=== PATIENT | female | born 1975 | race Caucasian/White ===

== ENCOUNTER → 2017-09-01 | Outpatient (REF) | payer OTHER ==
[2013-08-24 15:26] VITALS: BMI 37.4
[~2017-09-01] MED LIST: LACT10SO82 PO; LANI SUBQ; LISI-362 PO; PENT400T57 PO; PROP20TA56 PO; SPIR50TA33 PO; TRAM-420 PO
[2017-09-01 15:44] LABS: PLATELET COUNT, AUTOMATED 119 K/uL (150-450)
== END ==
PROVIDERS: ATTEND Physician Assistant Medical
DX: R05 Cough (principal); R10.9 Unspecified abdominal pain
CPT/HCPCS: 82040; 82150; 82247; 82310; 82374; 82435; 82565; 82947; 83690; 84075; 84132; 84155; 84295; 84450; 84460; 84520; 85025